=== PATIENT | male | born 1970 | race Caucasian/White ===

== ENCOUNTER 2024-07-02 13:28 | Outpatient (CLI) | payer OTHER, SELFPAY ==
--- NOTE | 2024-07-02 13:45 | US_ITS ---
WS: [id number] ULTRASOUND SOFT TISSUES LEFT axilla HISTORY: AXILLARY COMPARISON: None available. TECHNIQUE: 2-D and color Doppler imaging is submitted. Ultrasound artery to the LEFT axillary. There is no discrete mass identified. This is probably lipomatous soft tissue which is not encapsulated. US/US soft tissue/extremity 84110 IMPRESSION: Prominent lipomatous tissue in the axilla. No discrete mass.
== END 2024-07-02 13:29 | disposition home or self-care (01) ==
PROVIDERS: Family Provider Family Medicine; PCP Family Medicine; Visit Provider Family Medicine
DX: R22.9 Localized swelling, mass and lump, unspecified (principal)
CPT/HCPCS: 76882

== ENCOUNTER 2024-07-24 10:45 | Day surgery (SDC) | payer OTHER, SELFPAY ==
[2024-07-24 10:56] VITALS: BP 175/115; PULSE 98; RESP 16; TEMP 36.2; O2SAT 98; BMI 33.5
--- NOTE | 2024-07-24 11:03 | P.HP_ITS ---
Same Day Surgery H&P Indication for Procedure/HPI DATE OF PROCEDURE: July 24, 2024 CHIEF COMPLAINT/INDICATIONFOR SURGICAL PROCEDURE: need for screening colonoscopy PREOP DIAGNOSIS: need for screening colonoscopy PLANNED PROCEDURE: Operation Date: 07/24/24 12:15 Proposed Procedures p Colonoscopy [id number] G0121 Z12.11(Not Applicable) - Jun Kwong MD Medications/Allergies* Home Medications ?Medication ?Instructions ?Recorded ?Confirmed ?Type atorvastatin 10 mg tablet 10 mg PO DAILY 07/21/2407/06 History Allergies/Adverse Reactions Allergy/AdvReac Type Severity Reaction Status Date / Time No Known Allergies Allergy Verified 07/21/24 16:13 Pertinent History/Comorbid Conditions* Social History Smoking and tobacco/nicotine status: former use of tobacco/nicotine Pertinent Exam Findings alert, oriented x 3, clear to auscultation bilaterally and regular rate & rhythm Recommendations Surgery/Procedure today Coding Level of Care Code Acute Code for Chg Fwprosper
[2024-07-24] MEDS: sodium chloride 0.9% 1,000 ML 15 ML IV (11:06)
--- NOTE | 2024-07-24 11:11 | ANES.PREANE2 ---
Pre-Anesthetic Assessment Height/Weight: Height 1.83 m Weight 112.037 kg Temp Pulse Resp BP Pulse Ox O2 Del Method 97.2 F L 98 16 175/115 98 Room Air 07/24/24 10:56 07/24/24 10:56 07/24/24 10:56 07/24/24 10:56 07/24/24 10:56 07/24/24 10:56 Preop Diagnosis: need for screening colonoscopy Operation Date: 07/24/24 12:15 Proposed Procedures p Colonoscopy [id number] G0121 Z12.11(Not Applicable) - Jun Kwong MD Familial anesthetic complications: none Was Beta Norman taken within 24 hours: N/A Was Clonidine taken within 24 hours: N/A Last intake: Intake Last Liquid Date 07/24/24 Last Liquid Time 06:00 Last Solid Date 07/22/24 Last Solid Time 18:00 Social No alcohol and No tobacco Exam alert, oriented x 3, clear to auscultation bilaterally and regular rate & rhythm Airway Submandibular: within normal limits Cervical ROM: within normal limits Mallampati: Class II History/ROS No significant history except as noted Pulmonary None reported CV/HEM None reported None reported Hepatic None reported GI None reported Metabolic None reported Musc/skel None reported Neuropsych None reported Anesthetic Plan ASA status: 1 Anesthesia: Anesthesia Evaluation and MAC Risk of > 500 ml blood loss (7ml/kg in children): No Medications/Allergies Home Medications ?Medication ?Instructions ?Recorded ?Confirmed ?Last Taken ?Type atorvastatin 10 mg tablet 10 mg PO DAILY 07/21/24 07/24/24 07/22/24 History Allergies Allergy/AdvReac Type Severity Reaction Status Date / Time No Known Allergies Allergy Verified 07/21/24 16:13 Current Medications Generic Name Dose Route Start Last Admin Trade Name Freq PRN Reason Stop Dose Admin Sodium Chloride 1,000 mls @ 15 mls/hr 07/24/24 10:48 07/24/24 11:06 Sodium Chloride 0.9% IV 07/25/24 10:47 15 mls/hr .Q24H PRN Administration COLONOSCOPY FLUIDS PFSH Anesthesia Social History Smoking and tobacco/nicotine status: former use of tobacco/nicotine
[2024-07-24 12:01] VITALS: BP 115/76; PULSE 97; RESP 18; TEMP 36.3; O2SAT 95
[2024-07-24 12:14] VITALS: BP 130/72; PULSE 82; RESP 18; TEMP 36.1; O2SAT 96
== END 2024-07-24 12:30 | disposition home or self-care (01) ==
PROVIDERS: PCP Family Medicine; Visit Provider Surgery
PROC: 0DJD8ZZ Inspection of Lower Intestinal Tract, Via Natural or Artificial Opening Endoscopic (ICD-10-PCS; CPT 45378; principal; 2024-07-24 12:15)
DX: Z12.11 Encounter for screening for malignant neoplasm of colon (principal); K64.8 Other hemorrhoids; K57.30 Diverticulosis of large intestine without perforation or abscess without bleeding; Z79.899 Other long term (current) drug therapy; Z87.891 Personal history of nicotine dependence
CPT/HCPCS: 45378; J2704; J7030